=== PATIENT | male | born 1975 | race African-American/Black ===

== ENCOUNTER 2017-12-16 23:07 | Inpatient (IN) | payer SELFPAY ==
[~2017-12-16 23:07] MED LIST: ASPI81TA82 PO; HYDR-2768 PO; NORV10TA PO
[2017-12-16 23:09] VITALS: BP 236/120; PULSE 125; RESP 27; TEMP 98.1; O2SAT 87
[2017-12-16] MEDS ORDERED: FUROSEMIDE 20 MG/2 ML VIAL IVP ONE (23:30)
[2017-12-16] MEDS ORDERED: NITROGLYCERIN 2% OINT 1 GM PACKET TOPICAL ONE (23:30)
[2017-12-16] MEDS ORDERED: NITROGLYCERIN 0.4 MG SL 25 TABS/BTL SL ONE (23:30)
[2017-12-16] MEDS ORDERED: SODIUM CHLORIDE 0.9% FLUSH 10 ML FLUSH IVF PRN (23:30)
--- NOTE | 2017-12-16 23:36 | PD ---
HPI Chief Complaint: Respiratory Symptoms Time Seen by Provider: 23:19 Travel History International Travel<30 days: No Contact w/Intl Traveler<30days: No Traveled to known affect area: No History of Present Illness HPI Patient is a 42-year-old male with known hypertension however he has not been taking his meds for over 2 months , pt comes into the triage short of breath that had sudden onset 3 hours prior to arrival .. he has shortness of breath denies chest pain , he says it is worse when he lies flat.. he has no history of CHF , no history of COPD.. only history is hypertension for which he is not taking his meds ... he is morbidly obese 42-year-old male -[place] , His blood pressure @ triage is 230 systolic and patient is tachycardic and he O2 satting to 85% on room air ...denies travel denies , no immobilization , denies any coagulopathy or recent clots or no family history of DVTs...he denies any risk factors for being hypercoagulable and no trauma , Pt main complaint shortness of breath sudden onset He has not seen another MD for this complaint and took nothing to alleviate Symptoms PFSH Past Medical History High Cholesterol: No Diminished Hearing: No Hypertension: Yes Social History Alcohol Use: Yes (3-4 days/week, 4 beers/day) Tobacco Use: Yes (08/19 PPD) Substance Use: Yes (marijuana last week) Allergies-Medications (Allergen,Severity, Reaction): Coded Allergies: No Known Allergies (Verified Allergy, Unknown, 12/17/17) Reported Meds & Prescriptions Reported Meds & Active Scripts Active Review of Systems Except as stated in HPI: all other systems reviewed are Neg Respiratory: Positive: Shortness of Breath (htn) Physical Exam Narrative GENERAL: Appears mildly uncomfortable and slightly tachypneic SKIN: Warm and dry. HEAD: Atraumatic. Normocephalic. EYES: Pupils equal and round. No scleral icterus. No injection or drainage. ENT: No nasal bleeding or discharge. Mucous membranes pink and moist. NECK: Trachea midline. No JVD. CARDIOVASCULAR: Regular rate and rhythm. RESPIRATORY: No accessory muscle use,, left lower base rales auscultated GASTROINTESTINAL: Abdomen soft, non-tender, nondistended. Hepatic and splenic margins not palpable. MUSCULOSKELETAL: Extremities without clubbing, cyanosis, or edema. No obvious deformities. NEUROLOGICAL: Awake and alert. No obvious cranial nerve deficits. Motor grossly within normal limits. Five out of 5 muscle strength in the arms and legs. Normal speech. PSYCHIATRIC: Appropriate mood and affect; insight and judgment normal. Data Data Last Documented VS Vital Signs Date Time Temp Pulse Resp B/P (MAP) Pulse Ox O2 Delivery O2 Flow Rate FiO2 12/16/17 23:43 111 28 190/103 (132) 97 Nasal Cannula 4.00 12/16/17 23:09 98.1 Orders Orders Complete Blood Count With Diff (12/16/17:28) Comprehensive Metabolic Panel (12/16/17:) B-Type Natriuretic Peptide (12/16/17:) D-Dimer (12/16/17) Ckmb (Isoenzyme) Profile (12/16/17:) Troponin I (12/16/17:) Urinalysis - C+S If Indicated (12/16/17:) Iv Access Insert/Monitor (12/16/17:) Ecg Monitoring (12/16/17:28) Oximetry (12/16/17:28) Oxygen Administration (12/16/17:28) Sodium Chloride 0.9% Flush (Ns Flush) (12/16/17 23:30) Furosemide Inj (Lasix Inj) (12/16/17 23:30) Nitroglycerin Sl (Nitrostat Sl) (12/16/17 23:30) Nitroglycerin 2% Oint (Nitroglycerin 2% (12/16/17 23:30) Chest, Single Ap (12/16/17 ) CKMB (12/16/17 23:35) CKMB% (12/16/17 23:35) Aspirin Chew (Aspirin Chew) (12/17/17 00:15) Heparin Inj (Heparin Inj) (12/17/17 00:15) Heparin-D5w 25,000 U/250 Ml (Heparin-D5w (12/17/17 00:15) Act Partial Throm Time (Ptt) (12/17/17 00:07) Prothrombin Time / Inr (Pt) (12/17/17 00:07) Act Partial Throm Time (Ptt) (12/17/17 07:07) Urine Culture (12/16/17 23:50) Lisinopril (Prinivil) (12/17/17 00:30) Amlodipine (Norvasc) (12/17/17 00:30) Admit Order (Ed Use Only) (12/17/17 00:28) Metoprolol Tartrate (Lopressor) (12/17/17 00:30) Nitroglycerin Sl (Nitrostat Sl) (12/17/17 00:30) Labs Laboratory Tests Test 12/16/17 23:35 12/16/17 23:50 White Blood Count 6.6 TH/MM3 Red Blood Count 5.66 MIL/MM3 Hemoglobin 14.5 GM/DL Hematocrit 42.9 % Mean Corpuscular Volume 75.7 FL Mean Corpuscular Hemoglobin 25.7 PG Mean Corpuscular Hemoglobin Concent 33.9 % Red Cell Distribution Width 16.1 % Platelet Count 225 TH/MM3 Mean Platelet Volume 8.6 FL Neutrophils (%) (Auto) 53.9 % Lymphocytes (%) (Auto) 34.6 % Monocytes (%) (Auto) 6.9 % Eosinophils (%) (Auto) 1.7 % Basophils (%) (Auto) 2.9 % Neutrophils # (Auto) 3.6 TH/MM3 Lymphocytes # (Auto) 2.3 TH/MM3 Monocytes # (Auto) 0.5 TH/MM3 Eosinophils # (Auto) 0.1 TH/MM3 Basophils # (Auto) 0.2 TH/MM3 CBC Comment DIFF FINAL Differential Comment Prothrombin Time 10.0 SEC Prothromb Time International Ratio 1.0 RATIO Activated Partial Thromboplast Time 24.3 SEC D-Dimer Quantitative (PE/DVT) 0.36 MG/L FEU Blood Urea Nitrogen 16 MG/DL Creatinine 1.14 MG/DL Random Glucose 159 MG/DL Total Protein 7.6 GM/DL Albumin 3.6 GM/DL Calcium Level 8.9 MG/DL Alkaline Phosphatase 74 U/L Aspartate Amino Transf (AST/SGOT) 40 U/L Alanine Aminotransferase (ALT/SGPT) 34 U/L Total Bilirubin 0.6 MG/DL Sodium Level 140 MEQ/L Potassium Level 3.5 MEQ/L Chloride Level 99 MEQ/L Carbon Dioxide Level 29.8 MEQ/L Anion Gap 11 MEQ/L Estimat Glomerular Filtration Rate 85 ML/MIN Total Creatine Kinase 342 U/L Creatine Kinase MB 2.9 NG/ML Creatine Kinase MB % 0.8 % Troponin I 0.26 NG/ML B-Type Natriuretic Peptide 88 PG/ML Urine Color YELLOW Urine Turbidity CLEAR Urine pH 6.0 Urine Specific [place] 1.015 Urine Protein 100 mg/dL Urine Glucose (UA) NEG mg/dL Urine Ketones NEG mg/dL Urine Occult Blood TRACE Urine Nitrite NEG Urine Bilirubin NEG Urine Urobilinogen LESS THAN 2.0 MG/DL Urine Leukocyte Esterase TRACE Urine RBC 1 /hpf Urine WBC 9 /hpf Urine Hyaline Casts 9 /lpf Urine Mucus FEW /lpf Microscopic Urinalysis Comment CULTURE INDICATED MDM Medical Decision Making Medical Screen Exam Complete: Yes Emergency Medical Condition: Yes Differential Diagnosis CHF from uncontrolled HTN vs PE vs Asthma and uncontrolled HTN vs ACS leading to CHF SOB other Narrative Course Pt has uncontrolled HTN and SOB and Made ischemic elevated trop. I immediately gave nitro SL and Nitro paste , Pt denies any CP at any time in the last days , only SOB, pt is tachycardiac and Hypertensive and obese and known HTN wihtout med compliance I given Aspirin amlodipine and lisinopril , On seeing Trpo elevated I ask again of CP . pt denies CP and I heparinize and admit to [facility] for cath in next 12 hrs , Nitro ASA heparin and lowered BP with lisinopril to take strain of Heart admit [facility] anitcoagulated and ready for cath. Pain free on admission Critical Care Narrative 45 mins critical cardiac care time Diagnosis Primary Impression: Non-ST elevated myocardial infarction Additional Impression: Uncontrolled hypertension Admitting Information Admitting Physician Requests: Admit Scripts Cefuroxime (Ceftin) 250 Mg Tab 250 MG PO BID for infection , #14 TAB Prov: Leatha Rowland MD 12/18/17 Multiple Vitamins W/ Minerals (Thera M Plus) 1 Tab 1 TAB PO DAILY for Nutritional Supplement, #30 TAB Prov: Leatha Rowland MD 12/18/17 Thiamine HCl (Gnp Vitamin B-1) 100 Mg Tab 100 MG PO DAILY for Nutritional Supplement, #30 TAB Prov: Leatha Rowland MD 12/18/17 Folic Acid (Folic Acid) 1 Mg Tablet 1 MG PO DAILY for Nutritional Supplement, #30 TAB Prov: Leatha Rowland MD 12/18/17 Aspirin (Tgt Aspirin) 81 Mg Chw 81 MG PO DAILY for Blood Clot Prevention, #30 EA Prov: Leatha Rowland MD 12/18/17 Lisinopril (Lisinopril) 20 Mg Tab 20 MG PO DAILY for Blood Pressure Management, #60 TAB Prov: Leatha Rowland MD 12/18/17 Amlodipine (Norvasc) 10 Mg Tab 10 MG PO DAILY for Blood Pressure Management, #60 TAB Prov: Leatha Rowland MD 12/18/17 Carvedilol (Coreg) 12.5 Mg Tab 25 MG PO HS for Blood Pressure Management, #60 TAB Prov: Leatha Rowland MD 12/18/17 Carvedilol (Coreg) 12.5 Mg Tab 12.5 MG PO DAILY for Blood Pressure Management, #60 TAB Prov: Leatha Rowland MD 12/18/17 Isosorbide Mononitrate ER (Isosorbide Mononitrate ER) 30 Mg Nataliia 30 MG PO DAILY@07 for Blood Pressure Management, #60 TAB Prov: Leatha Rowland MD 12/18/17 Atorvastatin (Atorvastatin) 80 Mg Tab 80 MG PO HS for Cholesterol Management, #30 TAB Prov: Leatha Rowland MD 12/18/17 Clopidogrel (Plavix) 75 Mg Tab 75 MG PO DAILY for Blood Clot Prevention, #30 TAB Prov: Leatha Rowland MD 12/18/17 Vic Daugherty MD December 16, 2017 23:36
[2017-12-16 23:41] VITALS: RESP 28
[2017-12-16 23:43] VITALS: BP 190/103; PULSE 111; RESP 28; O2SAT 97
[2017-12-16 23:47] LABS: AUTOMATED NEUTROPHIL # 3.6 TH/MM3 (1.8-7.7); BASOPHIL # 0.2 TH/MM3 (0-0.2); BASOPHIL % 2.9 % (0.0-2.0); EOSINOPHIL # 0.1 TH/MM3 (0-0.4); EOSINOPHIL % 1.7 % (0.0-4.0); HEMATOCRIT 42.9 % (39.0-51.0); HEMOGLOBIN 14.5 GM/DL (13.0-17.0); LYMPH % 34.6 % (9.0-44.0); LYMPHOCYTE # 2.3 TH/MM3 (1.0-4.8); MEAN CELL VOLUME 75.7 FL (80.0-100.0); MEAN CORPUSCULAR HEMOGLOBIN 25.7 PG (27.0-34.0); MEAN CORPUSCULAR HGB CONC 33.9 % (32.0-36.0); MEAN PLATELET VOLUME 8.6 FL (7.0-11.0); MONO % 6.9 % (0.0-8.0); MONOCYTE # 0.5 TH/MM3 (0-0.9); NEUT % 53.9 % (16.0-70.0); PLATELET COUNT 225 TH/MM3 (150-450); RED BLOOD COUNT 5.66 MIL/MM3 (4.50-5.90); RED CELL DISTRIBUTION WIDTH 16.1 % (11.6-17.2); WHITE BLOOD COUNT 6.6 TH/MM3 (4.0-11.0)
--- NOTE | 2017-12-16 23:51 | RADRPT ---
EXAM DATE/TIME: 12/16/2017 23:32 [facility] COMPARISON: No previous studies available for comparison. INDICATIONS : Patient complains of shortness of breath. MEDICAL HISTORY : Hypertension. SURGICAL HISTORY : None. ENCOUNTER: Initial ACUITY: 1 day PAIN SCORE: 0/10 LOCATION: chest FINDINGS: There is mild primarily left perihilar infiltrate present. No evidence of effusion. Cardiac contours are grossly satisfactory for technique and projection. CONCLUSION: Patchy infiltrates. Deandre Schmidt MD on December 16, 2017 at 23:49 Board Certified Radiologist. This report was verified electronically.
[2017-12-17] VITALS (18 sets, daily range): BP systolic 120–186; BP diastolic 57–95; PULSE 82–115; RESP 16–26; TEMP 98.6–98.9; O2SAT 94–100
[2017-12-17 00:06] LABS: ALKALINE PHOSPHATASE 74 U/L (45-117); TOTAL BILIRUBIN ADULT 0.6 MG/DL (0.2-1.0); TOTAL PROTEIN 7.6 GM/DL (6.4-8.2); TROPONIN I 0.26 NG/ML (0.02-0.05)
[2017-12-17 00:10] LABS: BILIRUBIN, URINE NEG (NEG); BLOOD, URINE TRACE (NEG); GLUCOSE,URINE NEG (NEG); HYALINE CAST, URINE 9 /lpf (RARE); KETONE, URINE NEG (NEG); MUCUS URINE FEW /lpf (OCC); NITRITE,URINE NEG (NEG); URINE COLOR YELLOW (YELLW/STRAW); URINE LEUKOCYTE ESTERASE TRACE (NEG)
[2017-12-17 00:10] LABS: ALBUMIN 3.6 GM/DL (3.4-5.0); ALT (GPT) 34 U/L (12-78); AST (GOT) 40 U/L (15-37); BICARBONATE 29.8 MEQ/L (21.0-32.0); CALCIUM 8.9 MG/DL (8.5-10.1); CHLORIDE 99 MEQ/L (98-107); CREATININE 1.14 MG/DL (0.60-1.30); GLOMERULAR FILTRATION RATE 85 ML/MIN (>89); GLUCOSE,RANDOM 159 MG/DL (74-106); SODIUM (NA) 140 MEQ/L (136-145)
[2017-12-17] MEDS ORDERED: HEPARIN-D5W 25,000 U/250 ML 250 ML IV PRN (00:15)
[2017-12-17] MEDS ORDERED: HEPARIN SODIUM - IV 10,000 UNITS/10 ML VIAL IV ONE (00:15)
[2017-12-17] MEDS ORDERED: ASPIRIN 81 MG CHEW TAB CHEW ONE (00:15)
[2017-12-17 00:21] LABS: BLOOD UREA NITROGEN 16 MG/DL (7-18)
[2017-12-17] MEDS ORDERED: LISINOPRIL 20 MG TAB PO ONE (00:30)
[2017-12-17] MEDS ORDERED: NITROGLYCERIN 0.4 MG SL 25 TABS/BTL SL ONE (00:30)
[2017-12-17] MEDS ORDERED: METOPROLOL TARTRATE 25 MG TAB PO ONE (00:30)
[2017-12-17] MEDS ORDERED: ONDANSETRON HCL 4 MG/2 ML VIAL IV PUSH PRN (01:45)
[2017-12-17] MEDS ORDERED: MORPHINE SULFATE 4 MG/ML INJ IV PUSH PRN (01:45)
[2017-12-17] MEDS ORDERED: SODIUM CHLORIDE 0.9% FLUSH 10 ML FLUSH IV FLUSH PRN (01:45)
[2017-12-17] MEDS ORDERED: LORazepam 1 MG TAB PO PRN (02:00)
[2017-12-17] MEDS ORDERED: LORazepam 2 MG/ML VIAL IV PUSH PRN ×4 (02:00)
[2017-12-17] MEDS ORDERED: FLUMAZENIL 0.5 MG/5 ML VIAL IV PUSH PRN (02:00)
[2017-12-17] MEDS ORDERED: LORazepam 2 MG TAB PO PRN (02:00)
--- NOTE | 2017-12-17 02:03 | HHI.HP ---
[facility] No Primary Care Physician Admission Diagnosis trop elevation uncontrolled HTN Diagnoses: Travel History International Travel<30 Days: No Contact w/Intl Traveler <30 Da: No Traveled to Known Affected Are: No History of Present Illness 42-year-old male with a past medical history significant for hypertension presents the emergency department for the evaluation of shortness of breath and cough. Patient reports that approximately 5 hours ago he became short of breath and diaphoretic with a nonproductive dry cough. He reports he felt as though he was gasping for air. The patient states that he has been out of his home blood pressure medications for approximately 2 months as he does not have insurance or primary care provider. He denies ever having any chest pain. No fever/chills. No abdominal pain. No nausea/vomiting/diarrhea. No fevers/ chills. No weakness or fatigue. No lateralizing signs/symptoms. Review of Systems Except as stated in HPI: all other systems reviewed are Neg Past Family Social History Past Medical History Hypertension Past Surgical History None Reported Medications Reported Meds & Active Scripts Active Allergies: Coded Allergies: No Known Allergies (Verified Allergy, Unknown, 12/17/17) Family History Mother with diabetes mellitus Social History Occasional tobacco use. Drinks alcohol approximately 3-4 drinks daily. Denies illicit drugs. Physical Exam Vital Signs Vital Signs Date Time Temp Pulse Resp B/P (MAP) Pulse Ox O2 Delivery O2 Flow Rate FiO2 12/17/17 01:16 112 24 162/78 (106) 97 Nasal Cannula 4.00 12/17/17 00:53 115 24 177/91 (119) 97 Nasal Cannula 4.00 12/17/17 00:31 112 26 186/93 (124) 97 Nasal Cannula 4.00 12/16/17 23:43 111 28 190/103 (132) 97 Nasal Cannula 4.00 12/16/17 23:41 28 12/16/17 23:41 96 Nasal Cannula 4.00 12/16/17 23:09 98.1 125 27 236/120 (158) 87 Physical Exam GENERAL: -[place] male sitting up in bed SKIN: No rashes, ecchymoses or lesions. Cool and dry. HEAD: Atraumatic. Normocephalic. No temporal or scalp tenderness. EYES: Pupils equal round and reactive. Extraocular motions intact. No scleral icterus. No injection or drainage. ENT: Nose without bleeding, purulent drainage or septal hematoma. Throat without erythema, tonsillar hypertrophy or exudate. Uvula midline. Airway patent. NECK: Trachea midline. No JVD or lymphadenopathy. Supple, nontender, no meningeal signs. CARDIOVASCULAR: Regular rate and rhythm without murmurs, gallops, or rubs. RESPIRATORY: Clear to auscultation. Breath sounds equal bilaterally. No wheezes , rales, or rhonchi. GASTROINTESTINAL: Abdomen soft, non-tender, nondistended. No hepato-splenomegaly , or palpable masses. No guarding. MUSCULOSKELETAL: Extremities without clubbing, cyanosis, or edema. No joint tenderness, effusion, or edema noted. No calf tenderness. NEUROLOGICAL: Awake and alert. Cranial nerves II through XII intact. Motor and sensory grossly within normal limits. Normal speech. Laboratory Laboratory Tests Test 12/16/17 23:35 12/16/17 23:50 White Blood Count 6.6 Red Blood Count 5.66 Hemoglobin 14.5 Hematocrit 42.9 Mean Corpuscular Volume 75.7 Mean Corpuscular Hemoglobin 25.7 Mean Corpuscular Hemoglobin Concent 33.9 Red Cell Distribution Width 16.1 Platelet Count 225 Mean Platelet Volume 8.6 Neutrophils (%) (Auto) 53.9 Lymphocytes (%) (Auto) 34.6 Monocytes (%) (Auto) 6.9 Eosinophils (%) (Auto) 1.7 Basophils (%) (Auto) 2.9 Neutrophils # (Auto) 3.6 Lymphocytes # (Auto) 2.3 Monocytes # (Auto) 0.5 Eosinophils # (Auto) 0.1 Basophils # (Auto) 0.2 CBC Comment DIFF FINAL Differential Comment Prothrombin Time 10.0 Prothromb Time International Ratio 1.0 Activated Partial Thromboplast Time 24.3 D-Dimer Quantitative (PE/DVT) 0.36 Blood Urea Nitrogen 16 Creatinine 1.14 Random Glucose 159 Total Protein 7.6 Albumin 3.6 Calcium Level 8.9 Alkaline Phosphatase 74 Aspartate Amino Transf (AST/SGOT) 40 Alanine Aminotransferase (ALT/SGPT) 34 Total Bilirubin 0.6 Sodium Level 140 Potassium Level 3.5 Chloride Level 99 Carbon Dioxide Level 29.8 Anion Gap 11 Estimat Glomerular Filtration Rate 85 Total Creatine Kinase 342 Creatine Kinase MB 2.9 Creatine Kinase MB % 0.8 Troponin I 0.26 B-Type Natriuretic Peptide 88 Urine Color YELLOW Urine Turbidity CLEAR Urine pH 6.0 Urine Specific [place] 1.015 Urine Protein 100 Urine Glucose (UA) NEG Urine Ketones NEG Urine Occult Blood TRACE Urine Nitrite NEG Urine Bilirubin NEG Urine Urobilinogen LESS THAN 2.0 Urine Leukocyte Esterase TRACE Urine RBC 1 Urine WBC 9 Urine Hyaline Casts 9 Urine Mucus FEW Microscopic Urinalysis Comment CULTURE INDICATED Date/Time Source Procedure Growth Status 12/16/17 23:50 Urine Random Urine Urine Culture Pending Received Result Diagram: 12/16/17 2335 12/16/17 2335 Caprinluz marina VTE Risk Assessment Caprini VTE Risk Assessment: No/Low Risk (score <= 1) Caprini Risk Assessment Model Point Value = 1 Point Value = 2 Point Value = 3 Point Value = 5 Age 41-60 Minor surgery BMI > 25 kg/m2 Swollen legs Varicose veins or History of unexplained or recurrent spontaneous Oral contraceptives or hormone replacement Sepsis (< 1 month) Serious lung disease, including pneumonia (< 1 month) Abnormal pulmonary function Acute myocardial infarction Congestive heart failure (< 1 month) History of inflammatory bowel disease Medical patient at bed rest Age 61-74 Arthroscopic surgery Major open surgery (> 45 min) Laparoscopic surgery (> 45 min) Malignancy Confined to bed (> 72 hours) Immobilizing plaster cast Central venous access Age >= 75 History of VTE Family history of VTE Factor V Leiden Prothrombin [id number] Lupus anticoagulant Anticardiolipin antibodies Elevated serum homocysteine Heparin-induced thrombocytopenia Other congenital or acquired thrombophilia Stroke (< 1 month) Elective arthroplasty Hip, pelvis, or leg fracture Acute spinal cord injury (< 1 month) Prophylaxis Regimen Total Risk Factor Score Risk Level Prophylaxis Regimen 0-1 Low Early ambulation 2 Moderate Order ONE of the following: *Sequential Compression Device (SCD) *Heparin 5000 units SQ BID 3-4 Higher Order ONE of the following medications: *Heparin 5000 units SQ TID *Enoxaparin/Lovenox 40 mg SQ daily (WT < 150 kg, CrCl > 30 mL/min) *Enoxaparin/Lovenox 30 mg SQ daily (WT < 150 kg, CrCl > 10-29 mL/min) *Enoxaparin/Lovenox 30 mg SQ BID (WT < 150 kg, CrCl > 30 mL/min) AND/OR *Sequential Compression Device (SCD) 5 or more Highest Order ONE of the following medications: *Heparin 5000 units SQ TID (Preferred with Epidurals) *Enoxaparin/Lovenox 40 mg SQ daily (WT < 150 kg, CrCl > 30 mL/min) *Enoxaparin/Lovenox 30 mg SQ daily (WT < 150 kg, CrCl > 10-29 mL/min) *Enoxaparin/Lovenox 30 mg SQ BID (WT < 150 kg, CrCl > 30 mL/min) AND *Sequential Compression Device (SCD) Assessment and Plan Assessment and Plan Assessment/plan: 1. NSTEMI EKG showed sinus rhythm without ST segment elevations or depressions, personally reviewed Initial troponin 0.26 ACS rule out pending; serial troponins/EKGs Heparin bolus and drip Aspirin Beta-errol Cardiology consulted, appreciate recommendations 2. Pneumonia/shortness of breath/cough Chest x-ray significant for patchy infiltrates, personally reviewed Rocephin/azithromycin 3. Hypertension Resume home amlodipine and lisinopril Case management consulted to assist with outpatient follow-up FEN N.p.o. Electrolytes: Monitor and replete as needed Heparin drip Physician Certification 2 Midnight Certification Type: Admission for Inpatient Services Order for Inpatient Services The services are ordered in accordance with Medicare regulations or non- Medicare payer requirements, as applicable. In the case of services not specified as inpatient-only, they are appropriately provided as inpatient services in accordance with the 2-midnight benchmark. Estimated LOS (days): 2 2 days is the estimated time the patient will need to remain in the hospital, assuming treatment plan goals are met and no additional complications. Post-Hospital Plan: Not yet determined Caitie Coombs MD December 17, 2017 02:03
[2017-12-17] MEDS: cefTRIAXone INJ 1,000 MG in SODIUM CHLORIDE 0.9% INJ 100 ML IV SCH (02:16)
[2017-12-17] MEDS: AZITHROMYCIN INJ 500 MG in SODIUM CHLOR 0.9% 250 ML INJ 250 ML IV SCH (03:03)
[2017-12-17 06:07] LABS: TROPONIN I 0.43 NG/ML (0.02-0.05)
[2017-12-17] MEDS: FOLIC ACID 1 MG TAB PO SCH (08:59)
[2017-12-17] MEDS: LISINOPRIL 20 MG TAB PO SCH (08:59)
[2017-12-17] MEDS: THIAMINE HCL 100 MG TAB PO SCH (08:59)
[2017-12-17] MEDS: MULTIVITAMINS/MINERALS THERAPEUTIC TAB PO SCH (08:59)
[2017-12-17] MEDS ORDERED: CARVEDILOL 3.125 MG TAB PO SCH (09:00)
[2017-12-17] MEDS: SODIUM CHLORIDE 0.9% FLUSH 10 ML FLUSH IV FLUSH SCH ×2 (09:00→21:01)
[2017-12-17] MEDS ORDERED: LABETALOL HCL 100 MG/20 ML VIAL IV PUSH PRN (11:00)
[2017-12-17] MEDS ORDERED: hydrALAZINE HCL 20 MG/ML VIAL IV PUSH PRN (11:00)
[2017-12-17 12:12] LABS: TROPONIN I 0.37 NG/ML (0.02-0.05)
[2017-12-17] MEDS ORDERED: HEPARIN-NS/PF FLUSH BAG 2,000 ML IV FLUSH ONE (13:01)
[2017-12-17] MEDS ORDERED: MIDAZOLAM HCL 5 MG/5 ML VIAL ONE (13:02)
[2017-12-17] MEDS ORDERED: POTASSIUM CHLOR 20 MEQ PREMIX 100 ML ONE (13:27)
[2017-12-17] MEDS ORDERED: FUROSEMIDE 40 MG/4 ML VIAL ONE (13:27)
[2017-12-17] MEDS ORDERED: HEPARIN SODIUM - IV 10,000 UNITS/10 ML VIAL ONE (14:05)
[2017-12-17] MEDS ORDERED: CLOPIDOGREL 300 MG TAB ONE (14:14)
[2017-12-17] MEDS ORDERED: SODIUM CHLOR 0.9% 1000 ML INJ 1,000 ML IV SCH (14:33)
--- NOTE | 2017-12-17 14:37 | CATHPROC ---
[facility] HIS Report Study Information Study Number Admission Scheduled Start Study Start [id number] Dec 17 2017 12:30AM 12/17/2017 Dec 17 2017 12:59PM [place] Service Cardiac Catheterization Admit Source Facility Department Emergency department [facility] - Hand Cloth Cutter Physician and Clinical Staff Initial Kevin Martinez Cannoneer Tay RN, Donato CannoneerClemente Chavarria,RN Recorder Solo Aragon,RT(R) Scrub Maine Dunbar ,RT(R) Procedures Performed Procedure Location (Site) Vessel Name Angiogram LV LV Ventricle Coronary Angiograms LCA Left Coronary Coronary Angiograms RCA Right Coronary L Heart Cath PTCA RCA Mid Right Coronary Stent RCA Mid Right Coronary Wire insertion Fem Art (right) Femoral Art Equipment Time Screw Down Description Size Mfg Part Number Used/Scraped WIRE, BALANCE MIDDLEWEIGHT [id number] 13:55 [employer] 190CM Used 190CM *[id number] TRANSDUCER, TROnTheGo PlatformsAVE [id number] 13:02 PETERS HORNER * Used W/STOCKCOCK *[id number] *[id number] [id number] *[id number] 534-520T *[id number] 534-552S *[id number] 14:12 DAIG/[employer]. JUSTICE MEDICAL ANGIOSEAL, FR6 VIP FR 6 Used *[id number] 13:02 [employer] INDUSTRIES PACK, CCL CUSTOM * Used *[id number] 13:02 [employer] PACER PEN, SKIN DUAL W/ RULER * Used *[id number] 14:01 MEDTRONIC BALLOON, 2.5 X 12MM EUPHORA 12MM Used *[id number] 14:04 MEDTRONIC STENT, 4.0 18 INTEGRITY 4.0 18 Used *[id number] 13:54 WebTeb 30 DAVID INDEFLATOR Used *[id number] 13:57 Web[employer]eb SHEATH, FR6.5 PRELUDE 11CM FR 6.5 038ACT Used *[id number] 13:02 WebTeb WIRE, 3MMJ .035 180CM 180CM Used *[id number] PROBE COVER, STERILE [id number] 13:02 [employer] MEDICAL * Used ULTRASOUND W/ GEL *[id number] 13:02 NAMIC MANIFOLD, 4 PORT * Used *[id number] 13:04 NAMIC TUBING, HIGH PRESSURE 48" 48" Used *[id number] 13:02 NAMIC TUBING, HIGH PRESSURE 48" 48" Used *[id number] 13:02 NYCOMED OMNIPAQUE, 350 MG, 150ML 150ML [id number] Used 13:40 NYCOMED OMNIPAQUE, 350 MG, 50ML 50ML [id number] Used [id number] 13:02 TRAVIS MEDICAL BLANKET,WARM AIR CCL * Used *[id number] 13:02 TERUMO MEDICAL SHEATH, FR5 TERUMO (10CM) FR 5 Used *[id number] Equipment Model, Serial, Lot Number and Expiration Data Description Model Number Serial Number Lot Number Expiration Date ANGIOSEAL, FR6 VIP [id number] 06-15-2018 STENT, 4.0 18 INTEGRITY [id number] 02-17-2018 History: Current Medications Medication Dosage/Unit Route Frequency Last Date/Time Taken ASA HEPARIN Beta Emma History: Allergies Allergy Reaction No Known Allergies History: Risk Factors Family History of Hypertension Dyslipidemia Previous NC Previous Heart Failure Premature CAD Yes No No No No Prior Valve Prior PCI Prior CABG Surgery No No No Cerebrovascular Peripheral Artery Chronic Lung On Dialysis Diabetes Disease Disease Disease No No No No No History: Risk Factors Selection Items Current Smoker History: Symptoms/Diagnosis Selection Items SOB History: Stress Tests Stress or Imaging Studies Performed No History: Other Disease Selection Items HTN History: Other Current Smoker Method Packs a Day Years Used Pack Years Yes Cigarettes 1 10 10 Labs Hgb (g/dl) Hct (%) RBC (MIL/MM3) WBC (l/cumm) Platelets (thousands) 11.60-17.00 35.00-51.00 4.00-5.90 4.00-11.00 150.00-450.00 14.5 42.9 5.6 6.6 225 Glucose (mg/dl) BUN (mg/dl) Creatinine (mg/dl) BUN:Creatinine (1:x) 74.00-106.00 7.00-18.00 0.50-1.30 10.00-20.00 159 16 1.1 14.5 Na (meq/l) K (meq/l) Cl (meq/l) CO2 (mmol/L) 136.00-145.00 3.50-5.10 98.00-107.00 21.00-32.00 140 3.5 99 29.8 PT (sec) PTT (sec) INR (PTT:PT) 9.80-11.60 24.30-30.10 0.90-1.10 10 24.3 1 Troponin I (ng/ml) CPK (u/l) CPK-MB (ng/ML) 0.02-0.05 26.00-308.00 0.50-3.60 0.26 342 2.9 Medication Medication Total Dose (Bolus/Oral) Medication Total Dosage/Unit 1% XYLOCAINE 20 mL FENTANYL 50 mcg HEPARIN 9500 units LASIX 40 mg PLAVIX 900 mg VERSED 1 mg Medications (Bolus/Oral) Medication Time Given Dosage/Unit Administered By Reason LASIX 12/17/2017 1:30:24 PM 40 mg Donato Cross RN 40 mg LASIX given in lab by Donato Cross RN in Right Antecubital via Peripheral IV. 1% XYLOCAINE 12/17/2017 1:32:32 PM 20 mL Kevin Cadet 20 mL 1% XYLOCAINE given in lab by Kevin Cadet in Right Groin via Subcutaneous. VERSED 12/17/2017 1:33:09 PM 1 mg Donato Cross RN 1 mg VERSED given in lab by Donato Cross RN in Right Antecubital via Peripheral IV. FENTANYL 12/17/2017 1:33:16 PM 50 mcg Donato Cross RN 50 mcg FENTANYL given in lab by Donato Cross RN in Right Antecubital via Peripheral IV. HEPARIN 12/17/2017 1:54:36 PM 7500 units Donato Cross RN 7500 units HEPARIN given in lab by Donato Cross RN in Right Antecubital via Peripheral IV. HEPARIN 12/17/2017 2:06:23 PM 2000 units Donato Cross RN 2000 units HEPARIN given in lab by Donato Cross RN in Right Antecubital via Peripheral IV. Ordered by Kevin Cadet. PLAVIX 12/17/2017 2:19:56 PM 900 mg Donato Cross RN 900 mg PLAVIX given in lab by Donato Cross RN in Right Antecubital via Oral. Ordered by Elza Cadet. Medication (Drip) Medication Time Given Dosage/Unit Concentration/Unit Diluent (ml) Solutio n IV Solutions 12/17/2017 12:59:13 PM 0 mL (IV) 500 NaCl .9 IV Solutions given in lab by Donato Cross RN in Right Antecubital via Peripheral IV. Pump/Drip Flow = 20 ml/hr using NaCl .9. NESIRITIDE DRIP 12/17/2017 1:57:44 PM 0 units/hr 0 STOPPED 0 units/hr NESIRITIDE DRIP STOPPED given in lab by Donato Cross RN. Pump/Drip Flow = 0 ml/hr using [S olution Name]. Ordered by Kevin Cadet. NITROGLYCERIN DRIP 12/17/2017 1:32:00 PM 20 mcg/min 50 mg 250 D5W 20 mcg/min NITROGLYCERIN DRIP given in lab by Donato Cross RN in Right Antecubital via Peripheral IV. Pump/Drip Flow = 6 ml/hr using D5W with a concentration of 50 mg in 250 ml. POTASSIUM DRIP 12/17/2017 1:37:29 PM 20 meq/hr 10 meq 100 D5W .9 NaCl 20 meq/hr POTASSIUM DRIP given in lab by Donato Cross RN. Pump/Drip Flow = 200 ml/hr using D5W .9 NaC l with a concentration of 10 meq in 100 ml. Initial Case Assessment Cardiovascular HR Rhythm NIBP Chest Pain 114 Sinus 201/117 0 Edema Present Skin color Skin None Normal Warm Dry Circulatory - Right Pulses Dorsalis Pedis Femoral 1 2 Scale (0,1,2,3,4,d) Circulatory - Left Pulses Dorsalis Pedis Femoral 1 2 Scale (0,1,2,3,4,d) Neurological State Oriented to time-place- Alert Moves all extremities person Respiration - General Respiration Rate SpO2 (%) O2 (lpm) (B/min) 10 93 2 Final Case Assessment Cardiovascular HR Rhythm NIBP Chest Pain 97 Sinus 133/84 0 Edema Present Skin color Skin None Normal Warm Dry Neurological State Oriented to time-place- Alert Moves all extremities person Respiration - General Respiration Rate SpO2 (%) O2 (lpm) (B/min) 12 95 2 Chronological Log Time Study Chronological Log 12:54:51 Patient arrived via Bed. 12:58:58 Patient Name, D.O.B, / Armband Verified By R.N. 12:58:59 Consent signed by the physician and the patient and verified by the Hand Cloth Cutter staff. 12:58:59 Pre-op and post- op instructions given; patient acknowledges understanding of instructions. 12:59:00 Verbal Stimulation=2 Physical Stimulation=2 Airway=2 Respiration=2 TOTAL=8. (0=absent, 1=li mited, 2=present) 12:59:01 Anesthesia at bedside. Assumes care of patient. 12:59:02 Presedation assessment performed by Hand Cloth Cutter RN. 12:59:05 Patient has been NPO for More than 6Hrs. 12:59:05 Skin Breakdown- none per patient. 12:59:08 Patient Warmer Placed on the Table. 12:59:09 Silvina Prominences Protected 12:59:12 A # 20 IV was noted in the Antecubital (right). Grade = 0 IV Solutions given in lab by Donato Cross RN in Right Antecubital via Peripheral IV. Pump/Drip Flow = 20 ml/hr using 12:59:13 NaCl .9. 12:59:14 History and physical on the chart or being dictated. Vitals capture started with the following parameters, Patient=Adult, Interval=5 min, Initial Pr yoixek=355 mmHg, 12:59:20 Deflation Rate=5 mmHg, Cuff placed on Unknown 13:01:43 UG=984 bpm, UUQD=911/127 mmhg, SpO2=93.0 %, Resp=23 B/min, Pain=0, Emily=10, Cardenas=2 13:05:20 OK=795 bpm, JUNR=251/112 mmhg, SpO2=93.0 %, Resp=23 B/min, Pain=0, Emily=10, Cardenas=2 13:05:40 Reference ECG taken 13:10:21 FI=086 bpm, QEIF=363/122 mmhg, SpO2=92.0 %, Resp=25 B/min, Pain=0, Emily=10, Cardenas=2 Assessment: Initial Case, NI=135 BPM, Rhythm=Sinus, XBPM=029/117 mmhg, Chest Pain=0, Edema=None , Color=Normal, Skin = Warm, Dry Right Pulses: Paresh Ped=1, Femoral=2 13:10:51 Left Pulses: Paresh Ped=1, Femoral=2 Neurological: State=Alert, Ox3, DUDLEY Respiration: Resp=10 B/min, SpO2=93 %, O2=2 lpm 13:12:47 Bilateral groins prepped with 2% chlorhexidine, and draped after a 3 minute waiting time. 13:15:22 MR=019 bpm, DKDZ=024/120 mmhg, SpO2=94.0 %, Resp=28 B/min, Pain=0, Emily=10, Cardenas=2 13:16:23 paged 13:19:51 Pressure channel 1 zeroed. 13:20:11 Pressure channel 1 zeroed. 13:20:25 FT=918 bpm, RVPB=897/114 mmhg, SpO2=90.0 %, Resp=26 B/min, Pain=0, Emily=10, Cardenas=2 13:23:55 MD arrived. 13:25:22 VJ=344 bpm, LCRL=210/110 mmhg, SpO2=88.0 %, Resp=23 B/min, Pain=0, Emily=10, Cardenas=2 13:30:21 PF=294 bpm, KIVS=627/111 mmhg, SpO2=88.0 %, Resp=24 B/min, Pain=0, Emily=10, Cardenas=2 13:30:24 40 mg LASIX given in lab by Donato Cross RN in Right Antecubital via Peripheral IV. Time Out. Correct patient, correct procedure, correct physician, power injector loaded with con trast with surgical team 13:31:18 present. Time Out Concurred by MD and individual staff in procedure. 13:31:33 Case Start 20 mcg/min NITROGLYCERIN DRIP given in lab by Donato Cross RN in Right Antecubital via Peripher al IV. Pump/Drip 13:32:00 Flow = 6 ml/hr using D5W with a concentration of 50 mg in 250 ml. 13:32:32 20 mL 1% XYLOCAINE given in lab by Kevin Cadet in Right Groin via Subcutaneous. 13:33:09 1 mg VERSED given in lab by Donato Cross RN in Right Antecubital via Peripheral IV. 13:33:16 50 mcg FENTANYL given in lab by Donato Cross RN in Right Antecubital via Peripheral IV. 13:34:38 Access site was Right Femoral Artery. 13:35:10 A SHEATH, FR5 TERUMO (10CM) FR 5 was advanced into the Fem Art (right) using the Percutaneo us technique. 13:35:16 NG=662 bpm, WJHC=263/102 mmhg, SpO2=84.0 %, Resp=23 B/min, Pain=0, Emily=10, Cardenas=2 13:35:30 Activated Clotting Time Drawn A PIGTAIL ANG. INFINITI CATHETER FR 5 was advanced over a wire. OMNIPAQUE, 350 MG, 150ML 150ML was used 13:36:22 for injections. Recorded Pressure: LV, SZ=317, Condition=Condition 1 13:37:18 (Left Ventricle) LV 112/11/15 20 meq/hr POTASSIUM DRIP given in lab by Donato Cross RN. Pump/Drip Flow = 200 ml/hr using D5W .9 NaCl with a 13:37:29 concentration of 10 meq in 100 ml. 13:39:42 The LV was injected at 10 cc/sec for a total of 30. OMNIPAQUE, 350 MG, 50ML 50ML used. 13:40:11 WA=770 bpm, WVVR=446/94 mmhg, SpO2=84.0 %, Resp=14 B/min, Pain=0, Emily=10, Cardenas=2 Recorded Pressure: LV, Ao, DN=277, Condition=Condition 1 13:40:51 (Left Ventricle) LV 136/-2/7, (Aorta) Ao 127/84/102 13:41:10 ACT (Normal Range 90-180) = 149 13:42:30 Catheter was removed Recorded Pressure: Ao, QD=024, Condition=Condition 1 13:43:15 (Aorta) Ao 112/81/93 Nitro reduced to 10mcq 13:43:26 A JL 4.0 INFINITI CATHETER FR 5 was advanced over a wire. OMNIPAQUE, 350 MG, 150ML 150ML was us ed for 13:43:44 injections. 13:44:46 The LCA was injected and visualized at various angles. OMNIPAQUE, 350 MG, 150ML 150ML used . 13:45:12 HR=91 bpm, DHLG=690/74 mmhg, SpO2=82.0 %, Resp=24 B/min, Pain=0, Emily=10, Cardenas=2 13:45:41 Catheter was removed A AR MOD INFINITI CATHETER FR 5 was advanced over a wire. OMNIPAQUE, 350 MG, 150ML 150ML was us ed for 13:46:23 injections. 13:48:03 The RCA was injected and visualized at various angles. OMNIPAQUE, 350 MG, 150ML 150ML used . 13:50:13 HR=96 bpm, IPTI=797/78 mmhg, SpO2=91.0 %, Resp=18 B/min, Pain=0, Emily=10, Cardenas=2 13:53:42 Catheter was removed 13:54:36 7500 units HEPARIN given in lab by Donato Cross RN in Right Antecubital via Peripheral IV. 13:55:14 DB=545 bpm, YUFM=700/79 mmhg, SpO2=87.0 %, Resp=14 B/min, Pain=0, Emily=10, Cardenas=2 A SHEATH, FR6.5 PRELUDE 11CM FR 6.5 was exchanged in the Fem Art (right). This was necessary in order to 13:55:48 accomodate a larger catheter. 13:57:27 A AR 1 GUIDE CATHETER FR 6 was advanced over a wire. OMNIPAQUE, 350 MG, 150ML 150ML was use d for injections. 0 units/hr NESIRITIDE DRIP STOPPED given in lab by Donato Cross RN. Pump/Drip Flow = 0 ml/hr us ing [Solution 13:57:44 Name]. Ordered by Kevin Cadet. 13:59:43 A WIRE, BALANCE MIDDLEWEIGHT 190CM 190CM was inserted via Fem Art (right). 13:59:58 Interventional wire has crossed the lesion 14:00:13 HR=97 bpm, NAKU=368/72 mmhg, SpO2=88.0 %, Resp=16 B/min, Pain=0, Emily=10, Cardenas=2 14:00:19 Activated Clotting Time Drawn A BALLOON, 2.5 X 12MM EUPHORA 12MM was inserted over WIRE, BALANCE MIDDLEWEIGHT 190CM 190CM via the 14:01:00 RCA Mid. A BALLOON, 2.5 X 12MM EUPHORA 12MM over a WIRE, BALANCE MIDDLEWEIGHT 190CM 190CM in the RCA Mid was 14:02:05 inflated using a 30 DAVID INDEFLATOR at 17 david for 11 sec. A BALLOON, 2.5 X 12MM EUPHORA 12MM over a WIRE, BALANCE MIDDLEWEIGHT 190CM 190CM in the RCA Mid was 14:02:32 inflated using a 30 DAVID INDEFLATOR at 17 david for 11 sec. 14:03:36 Balloon Removed. 14:04:38 ACT (Normal Range 90-180) = 237 14:05:10 HR=96 bpm, KPSE=747/78 mmhg, SpO2=89.0 %, Resp=15 B/min, Pain=0, Emily=10, Cardenas=2 An STENT, 4.0 18 INTEGRITY 4.0 18 Bare Metal Stent was inserted through a AR 1 GUIDE CATHETER F R 6 over a 14:05:50 WIRE, BALANCE MIDDLEWEIGHT 190CM 190CM. 14:06:23 2000 units HEPARIN given in lab by Donato Cross RN in Right Antecubital via Peripheral IV. Ordered by Kevin Cadet. A STENT, 4.0 18 INTEGRITY 4.0 18 was deployed using a 30 DAVID INDEFLATOR at 19 atmospheres for 3 1 seconds in 14:06:56 the RCA Mid. 14:07:49 Delivery device removed 14:09:09 Wire removed 14:10:11 HR=95 bpm, GTYJ=951/80 mmhg, SpO2=90.0 %, Resp=10 B/min, Pain=0, Emily=10, Cardenas=2 14:10:30 Case End 14:12:43 An injection in the Fem Art (right) was made through the SHEATH, FR6.5 PRELUDE 11CM FR 6.5 . 14:15:10 HR=95 bpm, OWHG=367/84 mmhg, SpO2=95.0 %, Resp=17 B/min, Pain=0, Emily=10, Cardenas=2 Assessment: Final Case, HR=97 BPM, Rhythm=Sinus, AUWP=412/84 mmhg, Chest Pain=0, Edema=None, Color=Normal, Skin = Warm, Dry 14:18:00 Neurological: State=Alert, Ox3, DUDLEY Respiration: Resp=12 B/min, SpO2=95 %, O2=2 lpm 14:19:56 900 mg PLAVIX given in lab by Donato Cross RN in Right Antecubital via Oral. Ordered by Kevin Newby. 14:20:11 HR=94 bpm, XYXD=494/87 mmhg, SpO2=82.0 %, Resp=14 B/min, Pain=0, Emily=10, Cardenas=2 14:23:04 Sterile dressing applied to site 14:23:07 No case complications noted. 14:23:08 Cine recording checked. 14:24:22 Implantable Device card placed in patient's chart. 14:24:25 A Left Heart Cath was performed. 14:25:13 HR=97 bpm, RVAZ=899/93 mmhg, SpO2=95.0 %, Resp=14 B/min, Pain=0, Emily=10, Cardenas=2 14:28:15 Vitals capture stopped. End Study - Contrast Media Used In Study Contrast Total Opened (mL) Total Used (mL) Total Wasted (mL) Omnipaque 200 150 50 End Study - Maximum Contrast Load Max Contrast Load (mL) 508.3 End Study - Radiation Exposure Fluoro Time (minutes) 6.2 End Study - Patient Disposition Complications Transferred To Interventional Outcome No Telemetry Bed successful
--- NOTE | 2017-12-17 14:41 | MB ---
cc: Kevin Cadet MD DATE: 12/17/2017 HISTORY OF PRESENT ILLNESS: This is a 42-year-old black male with a history of hypertension who presented with shortness of breath and cough, which started yesterday. He has not had any chest pain. He has been out of his antihypertensive medications for the last 2 months since he does not have insurance and does not have a primary physician. He has not had any chest pain. He has not had any nausea, vomiting or dizziness. PAST MEDICAL HISTORY: Positive for hypertension. Negative for diabetes mellitus, dyslipidemia, coronary artery disease, or CVA. ALLERGIES: NONE. MEDICATIONS: None. SOCIAL HISTORY: The patient is a smoker. He drinks 3-4 drinks a day. He is accompanied by his . FAMILY HISTORY: Positive for diabetes mellitus. Negative for coronary artery disease. REVIEW OF SYSTEMS: Otherwise negative. PHYSICAL EXAMINATION: VITAL SIGNS: Blood pressure 178/91, pulse 90 and regular. HEENT: Negative. NECK: 2+ carotid upstrokes, no bruits. LUNGS: Clear. HEART: Regular with no murmur or gallop. ABDOMEN: Soft. No bruits. EXTREMITIES: Trace edema. 2+ distal pulses. NEUROLOGIC: Grossly nonfocal. LABORATORY DATA: EKG was reviewed and showed sinus tachycardia, nonspecific ST-T changes and mild intraventricular conduction delay. LABORATORY DATA: Hemoglobin 14.5, potassium 3.5, creatinine 1.1, AST 40, ALT 34. CK 342, 249 and 216. Troponin 0.26, 0.43 and 0.37. BNP 88. DIAGNOSES: 1. Non-ST elevation myocardial infarction. 2. Severe hypertension. 3. Noncompliance with medical care. 4. Smoking. DISPOSITION: Mr. Davis will undergo cardiac catheterization and coronary intervention if necessary. Recommend to continue to titrate his antihypertensive medications. I also recommend aggressive modification of his cardiac risk factors. He was strongly encouraged to quit smoking. Kevin Cadet MD OQ/SB , 02:19 PM , 02:40 PM
[2017-12-17] MEDS ORDERED: MISC INFORMATION XX ONE (14:45)
--- NOTE | 2017-12-17 14:58 | MA ---
cc: Kevin Cadet MD DATE: 12/17/2017 INDICATIONS: 1. Non-ST elevation myocardial infarction. 2. Class IV angina (angina equivalent). 3. Severe hypertension. PROCEDURE PERFORMED: 1. Right and left heart catheterization with left ventriculography and selective angiography. 2. Angioplasty and stenting of the mid-right coronary artery. 3. Moderate sedation. ACCESS SITE: Right femoral artery. EQUIPMENT USED: A 5-Kyrgyz pigtail catheter, 5-Kyrgyz JL4 and AR modified coronary artery catheters. AR1 guide, BMW wire, 2.5 x 12 mm balloon for predilatation, 4.0 x 18 mm Integrity stent at 9 atmospheres. MEDICATIONS: Versed IV, fentanyl IV, heparin IV, Plavix 900 mg p.o. CONTRAST: Omnipaque 150 mL. COMPLICATIONS: None. BLOOD LOSS: Less than 10 mL METHOD OF HEMOSTASIS: Angio-Seal closure. RESULTS: A. HEMODYNAMICS: Heart rate 102 beats per minute. Left ventricular end-diastolic pressure 12 mmHg. Left ventricle 120/12. Aorta 120/81/93. B. LEFT VENTRICULOGRAPHY: Ejection fraction 45%. Wall motion: Mild global hypokinesis. No mitral regurgitation. C . CORONARY ANGIOGRAPHY: 1. Left main coronary artery is patent. 2. Left anterior descending artery has 50% diffuse stenosis in the mid-portion. First diagonal artery has 40% ostial stenosis. Second diagonal artery is small with 30% stenosis. 3. Left circumflex artery has 40% stenosis in the proximal portion and 70% stenosis in the mid-portion. OM1 has 60% proximal stenosis. OM2 has 40% stenosis. 4. Right coronary artery is a large, dominant vessel with 95% stenosis in the mid-portion. Lesion Length: 30 mm. Pre-NADEEN flow 2, post-NADEEN flow 3, post-stenosis 0. PLV 70%. Proximal PDA 30%. Post-intervention angiography revealed excellent patency of the stented segment and no evidence of dissection, thrombus or distal embolization. DIAGNOSIS: 1. Severe multivessel coronary disease. 2. Moderate left ventricular dysfunction. 3. Successful angioplasty and stenting of the mid-right coronary artery. DISPOSITION: Mr. Davis was found to have evidence of severe diffuse multivessel coronary artery disease. He had very severe stenosis in the large right coronary artery, which was stented. He also has at least moderate stenosis of the left circumflex artery and mild to moderate stenosis of the left anterior descending artery. RECOMMENDATIONS: 1. Recommend to continue long-term therapy with Plavix and aspirin. 2. Also recommend aggressive modification of his cardiac risk factors, especially his dyslipidemia. 3. Recommend to continue blood pressure control. 4. The patient was strongly encouraged to quit smoking. 5. He will followup with his primary physician after discharge. MD JULIO CESAR Zacarias/JOSE G , 02:32 PM , 02:57 PM
[2017-12-17] MEDS ORDERED: CARVEDILOL 12.5 MG TAB PO ONE (15:45)
[2017-12-17] MEDS ORDERED: ISOSORBIDE MONONITRATE 30 MG CR TAB (IMDUR) PO ONE (15:45)
[2017-12-17] MEDS ORDERED: IOHEXOL 350 MG/ML 100 ML BTL (for Cath Lab) OTHER ONE (16:48)
[2017-12-17] MEDS ORDERED: IOHEXOL 350 MG/ML 50 ML BTL (for Cath Lab) OTHER ONE (16:48)
[2017-12-17] MEDS ORDERED: POTASSIUM CHLORIDE 20 MEQ CONTROLLED RELEASE TAB PO ONE (18:00)
[2017-12-17 18:33] LABS: AUTOMATED NEUTROPHIL # 6.2 TH/MM3 (1.8-7.7); BASOPHIL # 0.1 TH/MM3 (0-0.2); BASOPHIL % 0.8 % (0.0-2.0); EOSINOPHIL % 0.5 % (0.0-4.0); HEMATOCRIT 36.8 % (39.0-51.0); LYMPH % 13.6 % (9.0-44.0); LYMPHOCYTE # 1.1 TH/MM3 (1.0-4.8); MEAN CELL VOLUME 73.9 FL (80.0-100.0); MEAN CORPUSCULAR HEMOGLOBIN 26.2 PG (27.0-34.0); MEAN CORPUSCULAR HGB CONC 35.5 % (32.0-36.0); MEAN PLATELET VOLUME 8.7 FL (7.0-11.0); MONO % 5.4 % (0.0-8.0); MONOCYTE # 0.4 TH/MM3 (0-0.9); NEUT % 79.7 % (16.0-70.0); PLATELET COUNT 195 TH/MM3 (150-450); RED BLOOD COUNT 4.98 MIL/MM3 (4.50-5.90); RED CELL DISTRIBUTION WIDTH 15.9 % (11.6-17.2); WHITE BLOOD COUNT 7.8 TH/MM3 (4.0-11.0)
--- NOTE | 2017-12-17 20:54 | EKG ---
Date Performed: 12/16/2017 Time Performed: 23:19:19 PTAGE: 42 years EKG: SINUS TACHYCARDIA POSSIBLE LEFT ATRIAL ENLARGEMENT NONSPECIFIC ST & T-WAVE ABNORMALITY ABNO RMAL RHYTHM ECG Since the PREVIOUS TRACING , no significant change noted PREVIOUS TRACIN08/03/2013 @04.18 DOCTOR: El Allen Interpretating Date/Time 12/17/2017 16:59:00
--- NOTE | 2017-12-17 20:57 | EKG ---
Date Performed: 12/17/2017 Time Performed: 06:32:08 PTAGE: 42 years EKG: Sinus rhythm WITH FIRST DEGREE AV BLOCK POSSIBLE LEFT ATRIAL ENLARGEMENT MODERATE INTRAVENTRICULAR CONDUCTION DEL AY NONSPECIFIC ST & T-WAVE ABNORMALITY ABNORMAL ECG PREVIOUS TRACING : 12/16/2017 @23.19 DOCTOR: El Allen Interpretating Date/Time 12/20/2017 07:15:20
[2017-12-17] MEDS ORDERED: diphenhydrAMINE HCL 50 MG CAP PO PRN (21:00)
[2017-12-17] MEDS ORDERED: CARVEDILOL 12.5 MG TAB PO SCH ×2 (21:00)
[2017-12-17] MEDS ORDERED: ATORVASTATIN 80 MG TAB PO SCH (21:00)
[2017-12-18] VITALS (12 sets, daily range): BP systolic 126–130; BP diastolic 71–75; PULSE 79–97; RESP 18–19; TEMP 98.2–98.3; O2SAT 96–100
[2017-12-18] MEDS: AZITHROMYCIN INJ 500 MG in SODIUM CHLOR 0.9% 250 ML INJ 250 ML IV SCH (03:00)
[2017-12-18] MEDS: cefTRIAXone INJ 1,000 MG in SODIUM CHLORIDE 0.9% INJ 100 ML IV SCH (03:00)
[2017-12-18 04:29] LABS: AUTOMATED NEUTROPHIL # 4.4 TH/MM3 (1.8-7.7); BASOPHIL # 0.1 TH/MM3 (0-0.2); BASOPHIL % 0.9 % (0.0-2.0); EOSINOPHIL # 0.1 TH/MM3 (0-0.4); EOSINOPHIL % 1.9 % (0.0-4.0); HEMATOCRIT 35.9 % (39.0-51.0); HEMOGLOBIN 12.2 GM/DL (13.0-17.0); LYMPH % 18.6 % (9.0-44.0); LYMPHOCYTE # 1.1 TH/MM3 (1.0-4.8); MEAN CELL VOLUME 74.4 FL (80.0-100.0); MEAN CORPUSCULAR HEMOGLOBIN 25.2 PG (27.0-34.0); MEAN CORPUSCULAR HGB CONC 33.8 % (32.0-36.0); MEAN PLATELET VOLUME 8.8 FL (7.0-11.0); MONO % 5.6 % (0.0-8.0); MONOCYTE # 0.3 TH/MM3 (0-0.9); PLATELET COUNT 200 TH/MM3 (150-450); RED BLOOD COUNT 4.83 MIL/MM3 (4.50-5.90); RED CELL DISTRIBUTION WIDTH 16.5 % (11.6-17.2)
[2017-12-18 05:06] LABS: BICARBONATE 27.1 MEQ/L (21.0-32.0); BLOOD UREA NITROGEN 9 MG/DL (7-18); CALCIUM 8.1 MG/DL (8.5-10.1); CHLORIDE 105 MEQ/L (98-107); CHOLESTEROL 151 MG/DL (120-200); CHOLESTEROL/ HDL RATIO 4.21 RATIO; CREATININE 0.94 MG/DL (0.60-1.30); GLOMERULAR FILTRATION RATE 106 ML/MIN (>89); GLUCOSE,RANDOM 124 MG/DL (74-106); HDL CHOLESTEROL 35.8 MG/DL (40.0-60.0); SODIUM (NA) 142 MEQ/L (136-145); TRIGLYCERIDES 499 MG/DL (42-150)
[2017-12-18] MEDS ORDERED: POTASSIUM CHLORIDE 25 MEQ EFFERVESCENT TAB PO ONE (06:45)
[2017-12-18] MEDS ORDERED: ISOSORBIDE MONONITRATE 30 MG CR TAB (IMDUR) PO SCH (07:00)
[2017-12-18] MEDS: LISINOPRIL 20 MG TAB PO SCH (08:42)
[2017-12-18] MEDS: SODIUM CHLORIDE 0.9% FLUSH 10 ML FLUSH IV FLUSH SCH (08:42)
[2017-12-18] MEDS: FOLIC ACID 1 MG TAB PO SCH (08:43)
[2017-12-18] MEDS: MULTIVITAMINS/MINERALS THERAPEUTIC TAB PO SCH (08:43)
[2017-12-18] MEDS: THIAMINE HCL 100 MG TAB PO SCH (08:44)
[2017-12-18] MEDS ORDERED: CLOPIDOGREL 75 MG TAB PO SCH (09:00)
[2017-12-18] MEDS ORDERED: CARVEDILOL 12.5 MG TAB PO SCH (09:00)
[2017-12-18] MEDS ORDERED: ASPIRIN 81 MG CHEW TAB PO SCH (09:00)
[2017-12-18] MEDS ORDERED: FOLI1TAB6 PO (09:59)
[2017-12-18] MEDS ORDERED: THIA100 PO (09:59)
[2017-12-18] MEDS ORDERED: AMLO10 PO (09:59)
[2017-12-18] MEDS ORDERED: LISI-515 PO (09:59)
[2017-12-18] MEDS ORDERED: PLAV75TA29 PO (09:59)
[2017-12-18] MEDS ORDERED: CARV12.5 PO ×2 (09:59)
[2017-12-18] MEDS ORDERED: ATOR80TA45 PO (09:59)
[2017-12-18] MEDS ORDERED: ISOS30TA3 PO (09:59)
[2017-12-18] MEDS ORDERED: THERM PO (09:59)
[2017-12-18] MEDS ORDERED: ASPI81 PO (09:59)
[2017-12-18] MEDS ORDERED: PNEUMOCOCCAL POLYVALENT INJ 25 MCG/0.5 ML SYR IM ONE (10:00)
--- NOTE | 2017-12-18 10:13 | HHI.DS ---
Discharge Summary Admission Date December 17, 2017 at 00:30 Discharge Date: December 18, 2017 Admitting Diagnosis trop elevation uncontrolled HTN (1) Tobacco abuse ICD Code: Z72.0 - Tobacco use (2) Hyperlipidemia ICD Code: E78.5 - Hyperlipidemia, unspecified (3) Hypertension ICD Code: I10 - Essential (primary) hypertension (4) CAD (coronary artery disease) ICD Code: I25.10 - Atherosclerotic heart disease of crow coronary artery without angina pectoris Procedures Cardiac cath Brief History - From Admission 42-year-old male with a past medical history significant for hypertension presents the emergency department for the evaluation of shortness of breath and cough. Patient reports that approximately 5 hours ago he became short of breath and diaphoretic with a nonproductive dry cough. He reports he felt as though he was gasping for air. The patient states that he has been out of his home blood pressure medications for approximately 2 months as he does not have insurance or primary care provider. He denies ever having any chest pain. No fever/chills. No abdominal pain. No nausea/vomiting/diarrhea. No fevers/ chills. No weakness or fatigue. No lateralizing signs/symptoms. CBC/BMP: 12/18/17 0340 12/18/17 0340 Significant Findings Laboratory Tests Test 12/16/17 23:35 12/16/17 23:50 12/17/17 05:30 12/17/17 10:50 Mean Corpuscular Volume 75.7 FL (80.0-100.0) Mean Corpuscular Hemoglobin 25.7 PG (27.0-34.0) Basophils (%) (Auto) 2.9 % (0.0-2.0) Random Glucose 159 MG/DL (74-106) Aspartate Amino Transf (AST/SGOT) 40 U/L (15-37) Estimat Glomerular Filtration Rate 85 ML/MIN (>89) Total Creatine Kinase 342 U/L (39-308) Troponin I 0.26 NG/ML (0.02-0.05) 0.43 NG/ML (0.02-0.05) 0.37 NG/ML (0.02-0.05) Urine Protein 100 mg/dL (NEG-TRACE) Urine Occult Blood TRACE (NEG) Urine Leukocyte Esterase TRACE (NEG) Urine WBC 9 /hpf (0-5) Urine Mucus FEW /lpf (OCC) Test 12/17/17 11:00 12/17/17 17:53 12/18/17 03:40 Hematocrit 36.8 % (39.0-51.0) 35.9 % (39.0-51.0) Mean Corpuscular Volume 73.9 FL (80.0-100.0) 74.4 FL (80.0-100.0) Mean Corpuscular Hemoglobin 26.2 PG (27.0-34.0) 25.2 PG (27.0-34.0) Neutrophils (%) (Auto) 79.7 % (16.0-70.0) 73.0 % (16.0-70.0) Hemoglobin 12.2 GM/DL (13.0-17.0) Random Glucose 124 MG/DL (74-106) Calcium Level 8.1 MG/DL (8.5-10.1) Potassium Level 3.0 MEQ/L (3.5-5.1) Creatine Kinase MB 9.6 NG/ML (0.5-3.6) Triglycerides Level 499 MG/DL (42-150) HDL Cholesterol 35.8 MG/DL (40.0-60.0) Imaging Last Impressions Chest X-Ray 12/16/17 0000 Signed Impressions: Service Date/Time: December 23:32 - CONCLUSION: Patchy infiltrates. Deandre Schmidt MD PE at Discharge GENERAL: -British male sitting up in bed CARDIOVASCULAR: Regular rate and rhythm without murmurs, gallops, or rubs. RESPIRATORY: Clear to auscultation. Breath sounds equal bilaterally. No wheezes , rales, or rhonchi. GASTROINTESTINAL: Abdomen soft, non-tender, nondistended. No hepato-splenomegaly , or palpable masses. No guarding. MUSCULOSKELETAL: Extremities without clubbing, cyanosis, or edema. No joint tenderness, effusion, or edema noted. No calf tenderness. NEUROLOGICAL: Awake and alert. Cranial nerves II through XII intact. Motor and sensory grossly within normal limits. Normal speech. Pt update on day of discharge Feels much better today. No chest pain or shortness of breath. No nausea vomiting no diarrhea or constipation. Says he will stop smoking and change his lifestyle. Says he will take all his medications and be compliant. Hospital Course Mr. Davis was found to have evidence of severe diffuse multivessel coronary artery disease. He had very severe stenosis in the large right coronary artery , which was stented. He also has at least moderate stenosis of the left circumflex artery and mild to moderate stenosis of the left anterior descending artery. Continue long-term therapy with Plavix and aspirin, aggressive cardiac risk factors modification, compliance with medications, quit smoking. Patient to follow-up with PCP and consultants as outpatient. Severe multivessel coronary disease. Moderate left ventricular dysfunction. Successful angioplasty and stenting of the mid-right coronary artery. continue long-term therapy with Plavix and aspirin. aggressive modification of his cardiac risk factors quit smoking. EKG showed sinus rhythm without ST segment elevations or depressions, personally reviewed Initial troponin 0.26 ACS rule out pending; serial troponins/EKGs Heparin bolus and drip Aspirin Beta-errol Cardiology consulted, appreciate recommendations. Status post cardiac cath as above. Patient cleared by cardiology for discharge to follow-up with PCP as outpatient Pneumonia/shortness of breath/cough Chest x-ray significant for patchy infiltrates, personally reviewed Rocephin/azithromycin IV , DC on ceftin PO Hypertension. Resume home amlodipine and lisinopril Tobaccoism. The patient was counseled extensively regarding smoking cessation. He expressed understanding. Says he will be able to quit without medications as he has done it before. Patient improved. Cleared by cardiology for discharge. Follow-up as outpatient with PCP and consultants. Pt Condition on Discharge: Stable Discharge Disposition: Discharge Home Discharge Time: > 30 minutes Discharge Instructions DIET: Follow Instructions for: Heart Healthy Diet, Diabetic Diet Activities you can perform: Regular-No Restrictions Follow up Referrals: Cardiology - 1 Week PCP Follow-up - 2-3 Days New Medications: Cefuroxime (Ceftin) 250 Mg Tab 250 MG PO BID for infection , #14 TAB Amlodipine (Norvasc) 10 Mg Tab 10 MG PO DAILY for Blood Pressure Management, #60 TAB Aspirin (Tgt Aspirin) 81 Mg Chw 81 MG PO DAILY for Blood Clot Prevention, #30 EA Atorvastatin (Atorvastatin) 80 Mg Tab 80 MG PO HS for Cholesterol Management, #30 TAB Carvedilol (Coreg) 12.5 Mg Tab 12.5 MG PO DAILY for Blood Pressure Management, #60 TAB Carvedilol (Coreg) 12.5 Mg Tab 25 MG PO HS for Blood Pressure Management, #60 TAB Clopidogrel (Plavix) 75 Mg Tab 75 MG PO DAILY for Blood Clot Prevention, #30 TAB Folic Acid (Folic Acid) 1 Mg Tablet 1 MG PO DAILY for Nutritional Supplement, #30 TAB Isosorbide Mononitrate ER (Isosorbide Mononitrate ER) 30 Mg Nataliia 30 MG PO DAILY@07 for Blood Pressure Management, #60 TAB Lisinopril (Lisinopril) 20 Mg Tab 20 MG PO DAILY for Blood Pressure Management, #60 TAB Multiple Vitamins W/ Minerals (Thera M Plus) 1 Tab 1 TAB PO DAILY for Nutritional Supplement, #30 TAB Thiamine HCl (Gnp Vitamin B-1) 100 Mg Tab 100 MG PO DAILY for Nutritional Supplement, #30 TAB Leatha Rowland MD December 18, 2017 10:13
[2017-12-18] MEDS ORDERED: CEFU1TAB18 PO (10:24)
--- NOTE | 2017-12-18 14:27 | EKG ---
Date Performed: 12/17/2017 Time Performed: 15:14:44 PTAGE: 42 years EKG: Sinus rhythm Lateral T wave changes are nonspecific Since previous tracing, no significant change noted Borderlin e ECG PREVIOUS TRACING : 12/17/2017 06.32 DOCTOR: Dave Lu Interpretating Date/Time 12/18/2017 14:25:38
--- NOTE | 2017-12-18 14:29 | EKG ---
Date Performed: 12/18/2017 Time Performed: 03:41:16 PTAGE: 42 years EKG: Sinus rhythm . Extensive ST-T changes are nonspecific When compared to previous tracing, ST changes are slightly m ore Prominant, particularly in the anterolateral leads. Consider ischemia. Borderline ECG PREVIOUS TRACING : 12/17/2017 15.14.44 DOCTOR: Dave Lu Interpretating Date/Time 12/18/2017 14:27:25
--- NOTE | 2017-12-21 19:32 | PQ ---
Physician Query Response Document PATIENT: JOANA ALEXANDER : 1975 ADMIT DATE: 12/17/2017 12:30 AM DISCH DATE: 12/18/2017 12:11 PM RESPONDING PROVIDER #: [email or web address] QUERY TEXT: Conflicting Documentation Clarification A single mention or documentation of "Non-ST elevation (NSTEMI) myocardial infarction" appears in the record. Please clarify the diagnosis/diagnoses. Please also document if the condition is: -- Confirmed and current -- Confirmed, treated and resolved -- Ruled out -- Other, please specify The patient's Clinical Indicators include: History and Physical: NSTEMI EKG showed sinus rhythm without ST segment elevations or depressions, personally reviewed Initial troponin 0.26 ACS rule out pending; serial troponins/EKGs Heparin bolus and drip Aspirin Beta-errol Cardiology consulted, appreciate recommendations Consult: Kevin Cadet MD DIAGNOSES: 1. Non-ST elevation myocardial infarction. LABORATORY DATA: EKG was reviewed and showed sinus tachycardia, nonspecific ST-T changes and mild intraventricular conduction delay. LABORATORY DATA: Hemoglobin 14.5, potassium 3.5, creatinine 1.1, AST 40, ALT 34. CK 342, 249 and 216. Troponin 0.26, 0.43 and 0.37. BNP 88. Query created by: Maria A Alvarado on 12/21/2017 10:53 AM RESPONSE TEXT: Patient with NSTEMI /CAD s/p cardiac cath with PCI Electronically signed by: Leatha Rowland MD 12/21/2017 7:28 PM
== END 2017-12-18 12:11 | disposition home or self-care (01) | DRG 246 ==
LOC: NEPE 23:07 → NEDA 12-17 00:30 → HCVI 12-17 07:30 → HCPC 12-17 14:18
PROVIDERS: ADMIT Hospitalist; ATTEND Hospitalist
PROC: 027034Z Dilation of Coronary Artery, One Artery with Drug-eluting Intraluminal Device, Percutaneous Approach (ICD-10-PCS; principal; 2017-12-17)
PROC: 4A023N8 Measurement of Cardiac Sampling and Pressure, Bilateral, Percutaneous Approach (ICD-10-PCS; 2017-12-17)
PROC: B2151ZZ Fluoroscopy of Left Heart using Low Osmolar Contrast (ICD-10-PCS; 2017-12-17)
PROC: B2111ZZ Fluoroscopy of Multiple Coronary Arteries using Low Osmolar Contrast (ICD-10-PCS; 2017-12-17)
DX: I21.4 Non-ST elevation (NSTEMI) myocardial infarction (principal); J18.9 Pneumonia, unspecified organism; I25.110 Atherosclerotic heart disease of native coronary artery with unstable angina pectoris; I10 Essential (primary) hypertension; Z72.0 Tobacco use; Z91.19 Patient's noncompliance with other medical treatment and regimen
CPT/HCPCS: 71045; 80048; 80053; 80061; 81001; 82550; 82552; 83880; 84484; 85002; 85025; 85379; 85610; 85730; 87086; 92928; 93005; 93458; 96374; 96375; C1725; C1760; C1769; C1876; C1887; C1893; G0269; J0456; J0696; J1644; J1940; J2250; J3010; J3480; J7050; Q0163; Q9967